=== PATIENT | female | born 1965 | race Caucasian/White ===

== ENCOUNTER 2016-09-19 19:10 | Emergency (ER) | payer OTHER ==
[~2016-09-19] VITALS: Ht 157.5 cm; Wt 65.8 kg
--- NOTE | ~2016-09-19 | CR58 ---
[facility]. [facility] A Service of [facility] & [facility] RADIOLOGY TEXT RESULTS PATIENT: CHEIKH RAMOS LOCATION: SED : 63 UNIT #: [id number] AGE: [address]: ZI MONTES SEX: F ORDER DR: [id number] [place] [id number] E MR#: [id number] Acc #: [id number] NAME: CHEIKH RAMOS : 1965 SEX: F STUDY DATE/TIME: 09/19/2016 20:04 UNIT: SED ROOM: STUDY DESCRIPTION: CR Cervical Spine 2 or 3 Views Attending Physician: Zi Montes Aprn Ordering Physician: Zi Motnes Aprn MEDICAL IMAGING REPORT This report is preliminary unless electronic signature is present. EXAM Cervical spine series 09/19/2016 2004 hours HISTORY 2-week history of neck pain with left hand numbness radiating to elbow. Symptoms worse today. No reported injury. COMPARISON None. FINDINGS AP, lateral, open-mouth and lateral swimmer's views were performed. C1-T1 are visualized. There is no prevertebral soft tissue swelling. There is endplate spurring C4-5, C5-6 and C6-7. IMPRESSION No fracture or malalignment. There is mild disc height loss with endplate spurring at C4-5, C5-6 and C6-7. Dictated by... Anjali Trinh M.D. THIS IS AN ELECTRONICALLY VERIFIED REPORT Anjali Trinh M.D. at 09/20/2016 8:41 AM Niraj TD: 09/20/2016 07:44 JOB #: [id number] MEDICAL IMAGING REPORT Page 1 of 1
[2016-09-19] MEDS ORDERED: DAILY VIT FORM1 EACH PO (19:26)
== END 2016-09-19 21:25 | disposition home or self-care (01) ==
LOC: SED 19:10
DX: M79.642 Pain in left hand (principal); M79.645 Pain in left finger(s); F17.210 Nicotine dependence, cigarettes, uncomplicated; Z98.51 Tubal ligation status
CPT/HCPCS: 72040; 99284